=== PATIENT | female | born 1950 | race Caucasian/White ===

== ENCOUNTER 2024-09-05 15:32 | Outpatient (CLI) | payer MEDICARE, OTHER ==
--- NOTE | 2024-09-05 17:15 | RADIOLOGY REPORT ---
MR lumbar spine HISTORY: OTHER LOW BACK PAIN,OTHER FORMS OF SCOLIOSIS, LUMBAR REGION TECHNIQUE: MR was performed with a surface coil at 1.5 T magnet. Sagittal, axial and coronal T1 and T 2-weighted images were obtained. FINDINGS: Loss of height of the T11 and L1 vertebral bodies along the superior endplates with edema i n the vertebral bodies suggesting relatively acute compression fractures. At L1-2 there is a broad-based left paracentral 5 mm disc protrusion effacing the thecal sac At L2-3 there is loss of disc height and signal intensity. There is narrowing of the central canal an d neural foramina by shortened pedicles At L3-4 there is a broad-based 3 mm left paracentral disc protrusion effacing the thecal sac and caus ing narrowing of the left neural foramina At L4-5 there is moderately severe narrowing of the right side of the central canal and right neural foramina by protruding disc, shortened pedicles and facet joint hypertrophy At L5-S1 there is loss of disc height and signal intensity. There is foraminal narrowing due to short ened pedicles and facet joint hypertrophy Cord ends at T12-L1 and is normal in appearance IMPRESSION: 1. Relatively acute compression fractures along the superior T11 and L1 vertebral body endplates with less than 50% loss of vertebral body height 2. Spinal stenosis at multiple levels due to shortened pedicles in conjunction with bulging discs an d facet joint hypertrophy. At L1-2 5 mm left paracentral disc protrusion effaces the thecal sac. At L 3-4 3 mm left paracentral disc protrusion effaces the thecal sac and narrows the left neural foramina . At L4-5 severe narrowing of the right central canal and right neural foramen by protruding disc sh ortened pedicles and facet joint hypertrophy
== END 2024-09-05 23:59 | disposition home or self-care (01) ==
LOC: MRI 15:32
PROVIDERS: ATTEND Physician Assistant
DX: S22.080A Wedge compression fracture of T11-T12 vertebra, initial encounter for closed fracture (principal); M54.59 Other low back pain; S32.010A Wedge compression fracture of first lumbar vertebra, initial encounter for closed fracture; M41.86 Other forms of scoliosis, lumbar region; M47.816 Spondylosis without myelopathy or radiculopathy, lumbar region; M51.16 Intervertebral disc disorders with radiculopathy, lumbar region; M48.061 Spinal stenosis, lumbar region without neurogenic claudication; M85.80 Other specified disorders of bone density and structure, unspecified site; M48.07 Spinal stenosis, lumbosacral region; X58.XXXA Exposure to other specified factors, initial encounter; Y93.89 Activity, other specified; Y92.89 Other specified places as the place of occurrence of the external cause; Y99.8 Other external cause status
CPT/HCPCS: 72148

== ENCOUNTER 2024-09-29 12:37 | Inpatient (IN) | payer MEDICARE, OTHER ==
[~2024-09-29] VITALS: Ht 167.6 cm; Wt 118.2 kg
[2024-09-29 14:58] LABS: BASOPHILS % (AUTO) 0.8 % (0-1); EOSINOPHILS # (AUTO) 0.2 X10'3 (0-0.9); EOSINOPHILS % (AUTO) 3.6 % (0-6); HEMATOCRIT 37.9 % (35.0-45.0); HEMOGLOBIN 12.7 g/dl (12.0-16.0); MEAN CORPUSCULAR HEMOGLOBIN 29.8 PG (27.0-31.0); MEAN CORPUSCULAR HGB CONC 33.5 g/dL (33.0-36.5); MEAN CORPUSCULAR VOLUME 88.9 FL (78-98); MEAN PLATELET VOLUME 8.5 FL (7.4-10.4); MONOCYTES # (AUTO) 0.3 X10'3 (0-0.9); MONOCYTES % (AUTO) 5.6 % (2-12); NEUTROPHILS # (AUTO) 3.5 X10'3 (1.8-7.7); PLATELET COUNT 215 X10'3 (140-440); RED BLOOD COUNT 4.27 X10'6 (4.20-5.60); RED CELL DISTRIBUTION WIDTH 14.7 % (11.5-14.5); WHITE BLOOD COUNT 5.1 X10'3 (4.5-11.0)
[2024-09-29 15:44] LABS: BILIRUBIN,URINE NEGATIVE (Neg); CLARITY,URINE CLEAR (Clear); COLOR,URINE YELLOW (Yellow); GLUCOSE, URINE NEGATIVE (Neg); KETONES,URINE NEGATIVE (Neg); LEUKOCYTE ESTERASE ,URINE NEGATIVE (Neg); NITRITES, URINE NEGATIVE (Neg); OCCULT BLOOD,URINE LARGE (Neg); PROTEIN,URINE NEGATIVE (Neg); UROBILINOGEN,URINE 0.2 E.U/dL (0.2-1.0)
[2024-09-29 15:56] LABS: UA COLLECTION TYPE CLN CATCH MIDSTREAM
[2024-09-29 15:57] LABS: BACTERIA,URINE NONE SEEN /HPF (Neg); SQUAMOUS EPITHELIAL CELL,UR FEW /LPF (FEW); TRANSITIONAL EPI CELLS,URINE FEW /HPF; WBC,URINE 0-4 /HPF (0-4)
[2024-09-29 16:28] LABS: ALANINE AMINOTRANSFERASE 20 U/L (12-78); ALBUMIN 3.8 G/DL (3.4-5.0); ALBUMIN/GLOBULIN RATIO 1.4 (1.1-1.5); ALKALINE PHOSPHATASE 74 IU/L (46-116); ANION GAP 9 (8-16); ASPARTATE AMINO TRANSFERASE 11 U/L (10-37); BILIRUBIN,TOTAL 0.8 MG/DL (0.1-1.0); BLOOD UREA NITROGEN 14 MG/DL (7-18); BUN/CREATININE RATIO 17.7 (10.0-20.0); CALCIUM 8.8 MG/DL (8.5-10.1); CHLORIDE 109 MMOL/L (99-107); CREATININE 0.79 MG/DL (0.40-0.90); GLUCOSE 95 MG/DL (70-104); POTASSIUM 3.6 MMOL/L (3.5-5.1); SODIUM 142 MMOL/L (135-145); TOTAL CARBON DIOXIDE 23.8 MMOL/L (24-32); TOTAL PROTEIN 6.6 G/DL (6.4-8.2); eCRCL 60 ML/MIN; eGFR 72 ML/MIN
[2024-09-29 16:37] LABS: LIPASE 26 U/L (16-77)
--- NOTE | 2024-09-29 17:20 | Physician Documentation ---
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 Has been going on the last few days yesterday she noticed blood in her stools and on her toilet paper. Bright red. She has had no history of similar. No abdominal surgeries. She is not on a blood thinner. She is a nonsmoker no alcohol use. She does report taking for alleve nightly for the last several months due to her headaches Medication Reconciliation Allergies: Coded Allergies: Penicillins (Verified Allergy, Unknown, 09/29/24) >5 years, unknown reaction, unknown treatment, PEN-FAST 3 Miscellaneous Medications Home Med List (No Home Medications), (Reported) Past Medical History Smoking Status: Never smoker Review of Systems All Other Systems at this time: Reviewed and Negative Constitutional: Denies: fever Cardiovascular: Denies: chest pain Gastrointestinal: Reports: abdominal pain, nausea, vomiting Genitourinary: Denies: discharge, dysuria, frequency, flank pain Neurological: Reports: headache; Denies: dizziness, fainting Musculoskeletal: Denies: back pain Allergic/Immunologic: Denies: see HPI Hematologic/Lymphatic: Denies: see HPI, anemia Physical Exam Vital Signs: Temperature: 98.3, Source: Oral, Heart Rate: 64, Respiratory Rate: 21, BP: 139/76, Pulse Oximetry: 98, Weight: 118.180 Oxygen Flow Rate: 0 Physical Exam Nontoxic Extraocular motions intact Clear to auscultation bilaterally No murmurs Abdomen diffuse generalized tenderness no guarding no rebound Skin pink warm well-perfused Awake alert oriented Progress Progress Note Independently interpreted labs, UA noninfected, gross hematuria Hemoglobin normal Normal BUN Normal renal function Consulted hospitalist who agrees with management plan and graciously accept for admission Results/Orders Reviewed/noted all lab results: Yes Results/Orders Orders - NORAH AGRAWAL MD Straight Cath For Urine Sample (09/29/24 13:24) Completed Orders - NORAH AGRAWAL MD Cbc/Diff (09/29/24 13:24) Lipase (09/29/24 13:24) CMP (09/29/24 13:24) Ua W/Microscopic, Cult If Ind (09/29/24 15:26) Vital Signs 09/29/24 09/29/24 09/29/24 09/29/24 12:59 13:06 13:09 15:25 Temp 98.3 98.3 Pulse 66 65 64 Resp 18 18 18 21 B/P (MAP) 132/76 132/76 (94) 139/76 (97) Pulse Ox 94 94 98 O2 Flow Rate 0 Laboratory Tests Test 09/29/24 14:01 09/29/24 15:26 White Blood Count 5.1 Red Blood Count 4.27 Hemoglobin 12.7 Hematocrit 37.9 Mean Corpuscular Volume 88.9 Mean Corpuscular Hemoglobin 29.8 Mean Corpuscular Hemoglobin Concent 33.5 Red Cell Distribution Width 14.7 H Platelet Count 215 Mean Platelet Volume 8.5 Neutrophils (%) (Auto) 70.0 Lymphocytes (%) (Auto) 20.0 L Monocytes (%) (Auto) 5.6 Eosinophils (%) (Auto) 3.6 Basophils (%) (Auto) 0.8 Neutrophils # (Auto) 3.5 Lymphocytes # (Auto) 1.0 L Monocytes # (Auto) 0.3 Eosinophils # (Auto) 0.2 Basophils # (Auto) 0.0 CBC Comment Sodium Level 142 Potassium Level 3.6 Chloride Level 109 H Carbon Dioxide Level 23.8 L Anion Gap 9 Blood Urea Nitrogen 14 Creatinine 0.79 Estimated GFR/1.73 m2 72 BUN/Creatinine Ratio 17.7 Glucose Level 95 Calcium Level 8.8 Total Bilirubin 0.8 Aspartate Amino Transf (AST/SGOT) 11 Alanine Aminotransferase (ALT/SGPT) 20 Alkaline Phosphatase 74 Total Protein 6.6 Albumin 3.8 Globulin 2.8 Albumin/Globulin Ratio 1.4 Lipase 26 Chemistry Comments Urine Specimen Description Cln catch midstream Urine Color Yellow Urine Clarity Clear Urine pH 6.0 Urine Specific Yarnell 1.010 Urine Protein Negative Urine Glucose (UA) Negative Urine Ketones Negative Urine Occult Blood Large H Urine Nitrite Negative Urine Bilirubin Negative Urine Urobilinogen 0.2 Urine Leukocyte Esterase Negative Urine RBC 3-10 Urine WBC 0-4 Urine Squamous Epithelial Cells Few Urine Transitional Epithelial Cells Few Urine Bacteria None seen Urine Culture Indicated Not ind Volume Urine Centrifuged 10 ml Urine Comment EKG/XRAY/CT/US/VASC/MRI CT : Impression CT abdomen independently interpreted shows no dissection Medical Decision Making Findings 6:50 P.M.: CARE OF THE PATIENT WAS TRANSFERRED TO DC FROM DR. AGRAWAL. 8:00 P.M.: CASE DISCUSSED WITH THE HOSPITALIST FOR ADMISSION. SHE WILL ACCEPT THE PATIENT. CTA OF THE ABDOMEN AND PELVIS WAS UNREMARKABLE. Differential Dx:Considerations: Include: AAA, Appendicitis, Bowel obstruction Departure Time of Disposition: 20:11 Disposition: 09 ADMITTED INPATIENT Admitted to Inpatient Unit: to hospitalist Impression: Primary Impression: Abdominal pain Qualified Codes: R10.9 - Unspecified abdominal pain Additional Impression: Hematochezia Condition: Fair Signature Scribe Signature: NO SCRIBE Attestation: NO SCRIBE NORAH AGRAWAL MD September 29, 2024 17:20 JOLIE YANCEY MD September 29, 2024 20:12
[2024-09-29] MEDS ORDERED: iohexol 350MG/ML 100ml bottle IV ONE (17:52)
[2024-09-29] MEDS: morphine 4 MG/ML inj SYRINge IV ONE (19:03)
[2024-09-29] MEDS: ondansetron/PF 4mg/2ml inj IV ONE (19:03)
[2024-09-29] MEDS: ringers solution, lacted 1,000 ML IV ONE (19:04)
[2024-09-29] MEDS: methylPREDNISolone sod succ 125mg/2ml vial IV ONE (19:15)
[2024-09-29] MEDS: diphenhydrAMINE 50 mg/ml inj IV ONE (19:15)
--- NOTE | 2024-09-29 19:23 | RADIOLOGY REPORT ---
EXAM: CT CTA ABDOMEN PELVIS HISTORY: abdominal pain, GI bleeding COMPARISON: None TECHNIQUE: CT angiogram of the abdomen and pelvis. CT scans at this facility use dose modulation, ite rative reconstruction, and/or weight based dosing when appropriate to reduce radiation dose to as low as reasonably achievable. 100 mL of low osmolar contrast was administered without adverse effect. 3- D postprocessing was performed on a separate workstation under radiologist supervision. MIPs were cre ated. VASCULAR FINDINGS: Normal caliber of abdominal aorta without evidence of aortic dissection or aneurysm. The mesenteric, and bilateral renal, iliac and femoral arteries are widely patent without any focal stenosis or aneur ysm NON-VASCULAR FINDINGS: [LUNG BASES]: Trace pericardial effusion. Multiple fluid hypoattenuating macrolobulated structures lo cated in the bilateral hepatic lobes which may represent hepatic cysts versus biliary cystadenomas. [LIVER]: Normal hepatic size without suspicious focal lesion. [GALLBLADDER AND BILIARY TREE]: No cholelithiasis. No biliary dilatation. [SPLEEN]: Unremarkable. [PANCREAS]: Unremarkable. [ADRENAL GLANDS]: Unremarkable [KIDNEYS]: No hydronephrosis. No nephroureterolithiasis. Right renal sinus cysts. [BLADDER]: Unremarkable for the degree distention. [PELVIC ORGANS]: Unremarkable. [BOWEL/MESENTERY]: Small to medium sliding hiatal hernia. No CT evidence of bowel obstruction. Append ix is normal. There is no free air. Sigmoid diverticulosis and descending colonic diverticulosis. [ASCITES]: Absent [LYMPHADENOPATHY]: No pathologically enlarged lymph nodes by CT size criteria [ABDOMINAL WALL]: Small fat containing umbilical hernia [MUSCULOSKELETAL]: Acute to subacute superior endplate compression fracture of L1 and T11 with estima trini 20 percent height loss. No significant retropulsion. Multilevel degenerative change with severe f acet arthropathy. Multifocal degenerative change of the visualized spine. IMPRESSION: 1. No evidence of acute aneurysm, dissection, or intramural hematoma. 2. No evidence of focus of arterial contrast extravasation. 3. Large sliding hiatal hernia, pericardial effusion, diverticulosis, acute to subacute T11 and L1 co mpression fractures.
[2024-09-29] MEDS ORDERED: NO HOME MEDS (20:11)
[2024-09-29] MEDS ORDERED: magnesium sulf-water 4G/100mL 100 ML IV PRN (20:25)
[2024-09-29] MEDS ORDERED: magnesium sulf-water 2g/50mL 50 ML IV PRN (20:25)
[2024-09-29] MEDS ORDERED: potassium Cl 40MEQ/1/2NS 520ml 520 ML IV PRN (20:25)
[2024-09-29] MEDS ORDERED: acetaminophen 325mg tablet PO PRN (20:25)
[2024-09-29] MEDS ORDERED: magnesium hydroxide 30ml (MOM) UD suspension PO PRN (20:25)
[2024-09-29] MEDS ORDERED: morphine 2 MG/ML inj. syringe IV PRN (20:25)
[2024-09-29] MEDS ORDERED: magnesium Cl slow-release 64mg tablet PO PRN (20:25)
[2024-09-29] MEDS ORDERED: potassium Cl 20 mEq SR tablet PO PRN ×2 (20:25)
[2024-09-29] MEDS ORDERED: mag hydrox/Alum hydrox/simeth 30ml oral suspension PO PRN (20:25)
[2024-09-29 20:52] LABS: HEMOGLOBIN A1C 5.6 % (4.5-6.2)
[2024-09-29 21:00] LABS: PRO BRAIN NATRIURETIC PEPTIDE 200 PG/ML (0-125)
[2024-09-29 21:10] LABS: APTT 24 SECONDS (22-32); PROTHROMBIN TIME 10.7 SECONDS (9.0-12.0)
--- NOTE | 2024-09-29 23:21 | HISTORY AND PHYSICAL-Residence ---
History & Physical Providers to CC Resident Creating Document: RACHEL NICOLAS, GAYE ~ History of Present Illness Reason for Admit\Complaint: Rectal bleeding History of Present Illness This is a 73-year-old female with history of right-sided blindness from rejected cornea transplant presented for abdominal pain and blood in stool. She reported that yesterday at about 4:00 p.m. she had sudden onset abdominal pain, located in the epigastric and umbilical region, described the pain as sharp, nonradiating, graded 10/10, not associated with food intake. She also had about three bowel movements with armando blood, not mixed with the stool. Denied any black-colored stools. Also had two episodes of vomiting, not associated with blood. She denied any fevers, also denied eating anything from outside, or any recent travel history. No similar complaints in people living with her. Patient mentioned yesterday before the bowel movement she felt lightheaded, felt like she was about to blackout, did not lose consciousness, did not hit her head. She never had a colonoscopy or FOBT or an endoscopy done. She takes Aleve usually at night for pain in her back. Not on any blood thinners. She has a history of constipation. No family history of colon cancers. About two weeks ago she had a fall and hurt her back, had an MRI done which showed acute compression fracture in T11 and L1 vertebrae, spinal stenosis at multiple levels. Following up with Dr. Osborn. Allergies: Coded Allergies: Penicillins (Verified Allergy, Unknown, 09/29/24) >5 years, unknown reaction, unknown treatment, PEN-FAST 3 Home Medications Home Medications Active Reported No Home Medications (Home Med List) Each Past Medical History Past Medical History Borderline Hypertension not on any antihypertensive medications History of polio as a child History of surgery in the back Past Surgical History Surgical History Comment History of back surgery History of surgery in the right shoulder Family History Family History: FH: type 2 diabetes mellitus MOTHER CHILD Past Social History Social History Comment Denies any history of smoking, alcohol use, drug use Lives with her friend, moved to [place] three years ago after her . 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 ROS Constitutional: Denies: no symptoms reported, see HPI, chills, diaphoresis, fever, malaise, weakness, other Eyes: Denies: no symptoms reported, see HPI, pain, discharge, blurred vision, double vision, itching, photophobia, redness, tearing, other ENT: Denies: no symptoms reported, see HPI, ear pain, ear bleeding, ear discharge, hearing loss, ear ringing, nose pain, nose bleeding, nose congestion, nose discharge, throat pain, throat swelling, voice change, mouth pain, mouth bleeding, mouth swelling, other Respiratory: Denies: no symptoms reported, see HPI, cough, orthopnea, shortness of breath, SOB with exertion, SOB at rest, stridor, wheezing, hemoptysis, pain with breathing, other Cardiovascular: Denies: no symptoms reported, see HPI, chest pain, left arm pain, diaphoresis, lightheadedness, syncope, edema, palpitations, irregular heart rate, other Gastrointestinal: Reports: abdominal pain, vomiting, hematochezia Genitourinary: Denies: no symptoms reported, see HPI, burning, discharge, dysuria, frequency, flank pain, hematuria, incontinence, pain, decreased urine output, urgency, other Neurological: Reports: headache; Denies: no symptoms reported, see HPI, speech problem, dizziness, fainting, tingling, left sided numbness, right sided numbness, left sided weakness, right sided weakness, problems walking, unable to move lower ext, unable to move upper ext, petit mal seizures, tonic-clonic seizures, cognitive dysfunction, other Musculoskeletal: Denies: back pain Allergic/Immunologic: Denies: see HPI Hematologic/Lymphatic: Denies: see HPI, anemia Exam Vitals: Vital Signs Date Time Temp Pulse Resp B/P (MAP) Pulse Ox O2 Delivery O2 Flow Rate FiO2 09/29/24 21:00 58 17 99/77 (84) 99 09/29/24 20:00 2.0 09/29/24 18:50 Nasal Cannula* 28 09/29/24 13:09 98.3 General: General: Alert, oriented, not in distress HEENT: Conjunctive are pink, sclerae clear, no icterus, pupil is equal in both sides. Neck: Supple, no JVD, no lymphadenopathy and thyromegaly. Chest: Equal air entry on both lungs, no adventitious lung sounds Cardiovascular: S1-S2 regular sinus rhythm and, regular rate, no gallops, no rubs, no murmurs Abdomen:. Bowel sounds present on auscultation, soft, diffuse tenderness, no guarding, no rigidity Rectal examination-no hemorrhoids, no blood or stool on the gloves. Extremities: No obvious deformities, no edema bilaterally, capillary refill intact, peripheral pulsations are intact on both sides Central Nervous System: No focal neurological deficits, no motor or sensory weakness in all 4 extremities, could move all 4 extremities. Musculoskeletal: No joint swelling, deformities, inflammations, and no scoliosis and back tenderness Skin: Warm and dry Diagnostic Data Last Recorded Lab Results: 09/29/24 1401 09/29/24 1401 Diagnostic Data: Laboratory Tests Test 09/29/24 20:49 Prothrombin Time 10.7 SECONDS (9.0-12.0) INR International Normalized Ratio 1.0 INR Activated Partial Thromboplast Time 24 SECONDS (22-32) Coagulation Comments Counseling Services Smoking & Tobacco Cessation: 3-10 Minutes (I spent 17 minutes in discussing various resuscitative measures, the patient chose to be DNR) Additional Plan Assessment This is a 73-year-old female came to the ER with a chief complaint of abdominal pain and armando blood from the rectum. Patient is being admitted for for further evaluation of abdominal pain with hematochezia, possibly diverticular bleeding. Plan Abdominal pain with hematochezia Possible diverticular bleeding She is afebrile, Vitals in the normal range Rectal examination did not show hemorrhoids. WBC count, lactic acid in the normal range, procalcitonin ordered Hemoglobin is stable, 12.7 PT, PTT normal CTA abdomen done to rule out any possible ischemic colitis, showed no evidence of aneurysm, dissection, hematoma. Showed large sliding hiatal hernia, diverticulosis Started on NS @ 100 mL/hr Started on Protonix 40 mg IV daily Consult GI in the morning for possible colonoscopy. History of vertebral compression fracture Spinal MRI on 09/05/2024 showed acute compression fraction of T11 and L1 vertebral body, spinal stenosis at multiple levels. Patient is aware of this finding and following up with Dr. Osborn Code state; DNR DVT prophylaxis: SCD GI prophylaxis: Protonix Diet: Regular Line/tubes: Peripheral IV Status: Guarded Rachel Nicolas M.D PGY1 Addendum I personally reviewed the chart, labs and imaging and reviewed the patient with the team. I agree with the assessment and plan as documented by the resident. Patient was seen through remote audio-visual assessment through HIPAA compliance setup. Date of Service: September 29, 2024 Billing Provider: VERONICA NESBITT MD, PRAVAHIKA, RES September 29, 2024 23:21 VERONICA NESBITT MD September 30, 2024 02:22
[2024-09-29] MEDS: normal saline 1000ml 1,000 ML IV SCH (23:40)
[2024-09-30 02:31] LABS: BASOPHILS % (AUTO) 0.2 % (0-1); EOSINOPHILS % (AUTO) 0.2 % (0-6); HEMOGLOBIN 12.4 g/dl (12.0-16.0); LYMPHOCYTES # (AUTO) 0.6 X10'3 (1.1-4.8); LYMPHOCYTES % (AUTO) 14.8 % (21-51); MEAN CORPUSCULAR HEMOGLOBIN 29.5 PG (27.0-31.0); MEAN CORPUSCULAR HGB CONC 32.8 g/dL (33.0-36.5); MEAN PLATELET VOLUME 8.5 FL (7.4-10.4); MONOCYTES % (AUTO) 0.9 % (2-12); NEUTROPHILS # (AUTO) 3.5 X10'3 (1.8-7.7); NEUTROPHILS % (AUTO) 83.9 % (42-75); PLATELET COUNT 212 X10'3 (140-440); RED BLOOD COUNT 4.22 X10'6 (4.20-5.60); RED CELL DISTRIBUTION WIDTH 14.5 % (11.5-14.5); WHITE BLOOD COUNT 4.1 X10'3 (4.5-11.0)
[2024-09-30 02:47] LABS: ALBUMIN 3.5 G/DL (3.4-5.0); ANION GAP 8 (8-16); BLOOD UREA NITROGEN 14 MG/DL (7-18); BUN/CREATININE RATIO 16.9 (10.0-20.0); CALCIUM 8.8 MG/DL (8.5-10.1); CHLORIDE 110 MMOL/L (99-107); CHOL/HDL RATIO 4.5 (0.00-4.99); CHOLESTEROL 259 MG/DL (0-200); CREATININE 0.83 MG/DL (0.40-0.90); GLUCOSE 137 MG/DL (70-104); HDL CHOLESTEROL 57 MG/DL (35-60); LDL CHOLESTEROL 183 MG/DL (50-100); MAGNESIUM 2.1 MG/DL (1.5-2.4); POTASSIUM 3.9 MMOL/L (3.5-5.1); SODIUM 142 MMOL/L (135-145); TOTAL CARBON DIOXIDE 23.7 MMOL/L (24-32); TRIGLYCERIDES 52 MG/DL (20-135); eCRCL 57 ML/MIN; eGFR 68 ML/MIN
[2024-09-30] MEDS: K and/or MAG REPLACEMENT MC SCH (08:00)
--- NOTE | 2024-09-30 08:25 | ELECTROCARDIOGRAPH REPORT ---
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 Gaston Stauffer Measurements Intervals [place] Rate: 71 P: 43 [place]: 166 QRS: 74 QRSD: 90 T: 27 QT: 407 QTc: 443 Interpretive Statements Sinus rhythm Ventricular premature complex Minimal ST elevation, inferior leads Baseline wander in lead(s) II,aVF,V3 Electronically Signed On 10-01-2024 11:01:[address] Gaston Stauffer Please click the below link to view image of tracing.
[2024-09-30] MEDS: docusate sod 100mg capsule PO SCH (09:10)
[2024-09-30] MEDS: pantoprazole 40 MG vial IV SCH (09:10)
[2024-09-30 10:31] LABS: HEMATOCRIT 36.9 % (35.0-45.0); HEMOGLOBIN 12.3 g/dl (12.0-16.0); MEAN CORPUSCULAR HEMOGLOBIN 29.7 PG (27.0-31.0); MEAN CORPUSCULAR HGB CONC 33.4 g/dL (33.0-36.5); MEAN CORPUSCULAR VOLUME 88.9 FL (78-98); MEAN PLATELET VOLUME 8.5 FL (7.4-10.4); PLATELET COUNT 224 X10'3 (140-440); RED BLOOD COUNT 4.15 X10'6 (4.20-5.60); WHITE BLOOD COUNT 4.9 X10'3 (4.5-11.0)
[2024-09-30 11:30] VITALS: BP 117/68; PULSE 73; RESP 16; TEMP 97.9; O2SAT 95
[2024-09-30] MEDS: morphine 2 MG/ML inj. syringe IV PRN (13:07)
--- NOTE | 2024-09-30 14:39 | PROGRESS NOTE ---
Daily Progress Note Providers to CC ~ Antibiotic Timeout Antibiotic Ordered?: No Subjective No acute events overnight. Patient examined at bedside. No new complaints, not in acute distress. Patient denies chest pain, sob, palpitations, n/v/d. Abdominal pain manageable. Vss, labs unremarkable. Consulted GI Dr. Moran, patient is to start bowel prep for colonoscopy tomorrow. 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 Patient is being admitted for for further evaluation of abdominal pain with hematochezia, possibly diverticular bleeding. # LGIB -reports hematochezia x 3, 2 days ago -CT abd/pelvis showed large sliding hiatal hernia, diverticulosis -09/30: consulted GI Dr. oMran, patient is to start bowel prep for colonoscopy tomorrow # History of vertebral compression fracture -Spinal MRI on 09/05/2024 showed acute compression fraction of T11 and L1 vertebral body, spinal stenosis at multiple levels. -Patient is aware of this finding and following up with Dr. Osborn # Class III obesity Code state: DNR DVT/VTE prophylaxis: SCDs GI prophylaxis: Protonix Date of Service: September 30, 2024 Billing Provider: CHAVO RUSSELL Common Visit Codes: [id number] INP/OBS CARE(HIGH) CHAVO RUSSELL September 30, 2024 14:39
[2024-09-30] MEDS: PEG 3350/Na sulf,bicarb,Cl/KCl oral sol 4 liter bottle PO ONE (15:34)
[2024-09-30 17:28] VITALS: BP 149/86; PULSE 68; RESP 20; TEMP 96.7; O2SAT 97
[2024-09-30 18:00] VITALS: BP 138/84; PULSE 58; RESP 20; TEMP 98.2; O2SAT 95
--- NOTE | 2024-09-30 18:34 | CONSULTATION REPORT - RESIDENT ---
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 Symptoms began suddenly yesterday with sharp, nonradiating pain localized to the epigastric and umbilical regions, rated 10/10, and unrelated to food intake. She had three episodes of armando blood in her stool (not mixed with stool) and denied melena. Associated symptoms included lightheadedness and two episodes of non-bloody vomiting. The patient denies fever, recent dietary changes, or travel history. She has no prior history of gastrointestinal evaluations, including colonoscopy, FOBT, or endoscopy. Medications include occasional Aleve for back pain. She has a history of constipation and no family history of colorectal cancer. Imaging two weeks ago revealed T11 and L1 vertebral compression fractures after a fall. Currently does not have a primary care provider Allergies: Coded Allergies: Penicillins (Verified Allergy, Unknown, 09/29/24) >5 years, unknown reaction, unknown treatment, PEN-FAST 3 Home Medications Home Medications Active Reported No Home Medications (Home Med List) Each Past Medical History Past Medical History Borderline Hypertension ( not on any antihypertensive medications) Childhood polio Vertebral compression fracture Past Surgical History Surgical History Comment Right shoulder and lower back surgery Family History Family History: FH: type 2 diabetes mellitus MOTHER CHILD Past Social History Social History Comment Denies smoking, alcohol or illicit use of drugs Lives with her friend, moved to [place] three years ago after her . 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 All negative except for pertinent positive HPI. Exam Vitals: Vital Signs Date Time Temp Pulse Resp B/P (MAP) Pulse Ox O2 Delivery O2 Flow Rate FiO2 09/30/24 17:28 96.7 68 20 149/86 (107) 97 Room Air 09/30/24 06:30 0 09/29/24 18:50 28 General: Awake , alert, and oriented x4, resting comfortably in the bed, in no acute distress HEENT: Atraumatic, normocephalic, EOMI, anicteric sclera ; pink conjunctiva Neck: Trachea midline. Supple, full range of motion, no JVD Cardiac: Regular rhythm, regular rate with no murmurs all over the precordium. Respiratory: Equal breath sounds bilaterally, no tachypnea, no wheezing ,rub or rales, Chest wall is symmetric and without deformity. Gastrointestinal: Abdomen symmetric, non-distended, soft, non-tender, normal bowel sounds x4 quadrant, normoactive, no hepatosplenomegaly Rectal examination- No hemorrhoids Musculoskeletal: No pedal edema, no cyanosis Neurological: Speech is clear, alert, and oriented x 4. No motor or sensory deficit, deep tendon reflexes normal, cerebellar intact. Cranial nerves II-XII intact. Skin: Warm and dry Diagnostic Data Last Recorded Lab Results: 09/30/24 1006 09/30/24 0209 Diagnostic Data: Laboratory Tests Test 09/29/24 20:49 Prothrombin Time 10.7 SECONDS (9.0-12.0) INR International Normalized Ratio 1.0 INR Activated Partial Thromboplast Time 24 SECONDS (22-32) Coagulation Comments Additional Plan Vitals: Stable, afebrile Physical Exam: Rectal exam negative for hemorrhoids Labs: Hemoglobin: Stable at 12.7 g/dL WBC count, lactic acid: Within normal limits PT, PTT: Normal Procalcitonin: Normal Imaging: CTA abdomen: No evidence of aneurysm, dissection, hematoma, or ischemic colitis. Findings include large sliding hiatal hernia and diverticulosis. Assessment & Plan: 1.hematochezia: Likely due to diverticular bleeding based on the typical presentation of sudden painless rectal bleeding. imaging study , CT scan showed divericulosis. Other causes may include a bleeding polyp, colon cancer although less likely Less likely ischemic colitis given the fact she did not have pain associated with hematochezia confirmed with negative CTA abdomen. Typically patients have bloody mucoid stool with pain in ischemic colitis. Plan: Continue Protonix 40 mg IV daily. Maintain IV hydration with normal saline at 100 mL/hr. Monitor hemoglobin for ongoing bleeding. Plan for colonoscopy and endoscopy to further evaluate the source of bleeding tomorrow. NPO after midnight Bowel preparation with GoLYTELY tonight 2. Large sliding hiatal hernia: Incidental finding. No acute intervention required unless symptomatic. Will await EGD findings 3. History of vertebral compression fractures: Follow-up with Dr. Osborn patient Ensure adequate pain control. Diagnostics: Continue monitoring labs, including WBC count, lactic acid, and procalcitonin (pending). GI consultation recommendations: Proceed with colonoscopy and endoscopy tomorrow for diagnostic evaluation of hematochezia. Impression: The patients presentation is most consistent with diverticular bleeding with the absence of hemodynamic instability or evidence of ischemia. Colonoscopy is warranted to confirm the diagnosis and guide further management. Code Status: DNR DVT Prophylaxis: SCDs, avoid anticoagulation GI Prophylaxis: Protonix Nutrition: Clear liquid diet Disposition: Colonoscopy and endoscopy tomorrow in a.m. Jesse Snider MD Internal Medicine Resident, PGY-1 Date of Service: September 30, 2024 Billing Provider: JEANNINE SELF MD, GAURAV, RES September 30, 2024 18:34 JEANNINE SELF MD October 01, 2024 11:42
[2024-09-30] MEDS ORDERED: hydrALAZINE 20mg/ml inj. IV PRN (18:50)
[2024-09-30] MEDS: ondansetron/PF 4mg/2ml inj IV PRN (19:43)
[2024-09-30 20:00] VITALS: RESP 18; O2SAT 98
[2024-09-30 22:00] VITALS: BP 131/56; PULSE 63; RESP 18; TEMP 97.9; O2SAT 97
[2024-09-30 23:58] VITALS: RESP 18; O2SAT 98
[2024-09-30] MEDS ORDERED: IBUP-1985 PO (23:58)
[2024-10-01] VITALS (14 sets, daily range): BP systolic 113–161; BP diastolic 50–82; PULSE 65–91; RESP 12–20; TEMP 97.8–98.6; O2SAT 92–100
[2024-10-01] MEDS: PEG 3350/Na sulf,bicarb,Cl/KCl oral sol 4 liter bottle PO ONE (06:00)
[2024-10-01 06:06] LABS: ANION GAP 7 (8-16); BASOPHILS % (AUTO) 0.6 % (0-1); BLOOD UREA NITROGEN 14 MG/DL (7-18); BUN/CREATININE RATIO 14.7 (10.0-20.0); CALCIUM 8.4 MG/DL (8.5-10.1); CHLORIDE 113 MMOL/L (99-107); CREATININE 0.95 MG/DL (0.40-0.90); EOSINOPHILS # (AUTO) 0.1 X10'3 (0-0.9); EOSINOPHILS % (AUTO) 0.8 % (0-6); GLUCOSE 92 MG/DL (70-104); HEMATOCRIT 31.3 % (35.0-45.0); HEMOGLOBIN 10.6 g/dl (12.0-16.0); LYMPHOCYTES # (AUTO) 1.9 X10'3 (1.1-4.8); LYMPHOCYTES % (AUTO) 30.2 % (21-51); MEAN CORPUSCULAR HEMOGLOBIN 30.3 PG (27.0-31.0); MEAN CORPUSCULAR HGB CONC 33.9 g/dL (33.0-36.5); MEAN CORPUSCULAR VOLUME 89.3 FL (78-98); MEAN PLATELET VOLUME 8.4 FL (7.4-10.4); MONOCYTES # (AUTO) 0.3 X10'3 (0-0.9); MONOCYTES % (AUTO) 5.4 % (2-12); NEUTROPHILS # (AUTO) 3.9 X10'3 (1.8-7.7); PLATELET COUNT 182 X10'3 (140-440); POTASSIUM 3.6 MMOL/L (3.5-5.1); RED CELL DISTRIBUTION WIDTH 14.8 % (11.5-14.5); SODIUM 146 MMOL/L (135-145); WHITE BLOOD COUNT 6.2 X10'3 (4.5-11.0); eCRCL 50 ML/MIN; eGFR 58 ML/MIN
[2024-10-01] MEDS ORDERED: LIDOcaine 2% Viscous 15ml cup ONE (09:04)
[2024-10-01] MEDS ORDERED: fentaNYL/PF 50MCG/1 ML 2ML syringe ONE (10:43)
[2024-10-01] MEDS ORDERED: MIDAZolam 1 MG/ML 5ML VIAL ONE (10:44)
--- NOTE | 2024-10-01 13:25 | PROGRESS NOTE- Residence ---
Progress Note - Resident Providers to CC Resident Creating Document: ELENABENROSA JacobsBROGAYE ~ Antibiotic Timeout Antibiotic Ordered?: No Subjective Post Procedural EGD Note: Procedure: Upper Endoscopy (Esophagogastroduodenoscopy - EGD) Indications: Evaluation of suspected upper GI bleed and anemia. Findings: Esophagus: Normal appearance without evidence of erosions, ulcers, or varices. Stomach: A medium-sized hiatal hernia was noted. Localized mild mucosal changes in the gastric antrum and pre-pyloric region characterized by congestion. No evidence of active bleeding, ulcers, or masses. Biopsies were taken from the antrum for histopathological evaluation. Duodenum: Duodenal bulb and second portion were normal without evidence of erosions, ulcers, or other abnormalities. Interventions: Biopsies were obtained from the gastric antrum. No therapeutic intervention was required during the procedure. Complications: None. Recommendations: Return patient to hospital [facility] for monitoring. Resume diet as tolerated. Continue current medications, including proton pump inhibitors. Await pathology results of gastric antral biopsies to guide further management. Plan: Follow up on pathology results and correlate findings with clinical presentation to determine the cause of mucosal changes. Reinforce the importance of avoiding potential triggers (e.g., NSAIDs, alcohol). - Post-Procedure Colonoscopy Note Procedure: Colonoscopy Indications: Evaluation of anemia and suspected lower GI bleed. Findings: Perianal and Digital Rectal Exam (JACKSON): Normal without evidence of masses, fissures, or bleeding. Rectum: Normal mucosa without evidence of inflammation or lesions. Sigmoid Colon: Multiple diverticula were noted, consistent with diverticulosis. No evidence of active bleeding or inflammation. Hemorrhoids: Non-bleeding internal hemorrhoids were identified. Remaining Colon: Normal mucosa from descending colon to cecum without evidence of masses, polyps, or other abnormalities. Terminal Ileum: Normal appearance. Interventions: No therapeutic interventions were required during the procedure. Complications: None. Recommendations: Return patient to hospital [facility] for monitoring. Resume diet as tolerated. Continue current medications as prescribed. Educate the patient on the benign nature of diverticulosis and hemorrhoids. Emphasize a high-fiber diet and adequate hydration to prevent complications like diverticulitis or hemorrhoidal bleeding. Plan: No immediate concerns based on current findings. Consider routine follow-up as needed, or earlier evaluation if symptoms of bleeding recur. Procedure performed by: Dr. Self Date: 10/01/24 Objective Vital Signs Date Time Temp Pulse Resp B/P (MAP) Pulse Ox O2 Delivery O2 Flow Rate FiO2 10/01/24 11:55 66 13 115/50 92 Room Air 0.0 10/01/24 10:00 98.6 09/29/24 18:50 28 Result Diagram: 10/01/24 0500 10/01/24 0500 Coagulation Studies Laboratory Tests Test 09/29/24 20:49 Prothrombin Time 10.7 SECONDS (9.0-12.0) INR International Normalized Ratio 1.0 INR Activated Partial Thromboplast Time 24 SECONDS (22-32) Coagulation Comments Date of Service: October 01, 2024 Billing Provider: JEANNINE SELF MD, GAURAV, RES October 01, 2024 13:25
[2024-10-01 14:52] LABS: HEMATOCRIT 35.2 % (35.0-45.0); HEMOGLOBIN 11.7 g/dl (12.0-16.0); MEAN CORPUSCULAR HEMOGLOBIN 30.1 PG (27.0-31.0); MEAN CORPUSCULAR HGB CONC 33.3 g/dL (33.0-36.5); MEAN CORPUSCULAR VOLUME 90.2 FL (78-98); MEAN PLATELET VOLUME 8.1 FL (7.4-10.4); PLATELET COUNT 184 X10'3 (140-440); RED CELL DISTRIBUTION WIDTH 14.5 % (11.5-14.5); WHITE BLOOD COUNT 5.2 X10'3 (4.5-11.0)
--- NOTE | 2024-10-01 15:27 | DISCHARGE SUMMARY ---
Discharge Summary Providers to CC ~ Discharge Summary Admission Diagnosis: lower GI bleed Hospital Course DATE OF ADMISSION: 09/29/24 DATE OF DISCHARGE: 10/01/24 Discharge Diagnosis\\Comment: LGIB likely hemorrhoid bleeding History of vertebral compression fracture Class III obesity Operations\\Procedures: Colonoscopy Consultants: GI Ronal Ferrari Complications: None Condition on DC: Stable Continued Medications: Home Med List (No Home Medications) Each Discontinued Medications: Ibuprofen (Ibuprofen) 600 Mg Tablet 1 TAB PO TID Discharge Summary: History of Present Illness From H&P: "This is a 73-year-old female with history of right-sided blindness from rejected cornea transplant presented for abdominal pain and blood in stool. She reported that yesterday at about 4:00 p.m. she had sudden onset abdominal pain, located in the epigastric and umbilical region, described the pain as sharp, nonradiating, graded 10/10, not associated with food intake. She also had about three bowel movements with armando blood, not mixed with the stool. Denied any black-colored stools. Also had two episodes of vomiting, not associated with blood. She denied any fevers, also denied eating anything from outside, or any recent travel history. No similar complaints in people living with her. Patient mentioned yesterday before the bowel movement she felt lightheaded, felt like she was about to blackout, did not lose consciousness, did not hit her head. She never had a colonoscopy or FOBT or an endoscopy done. She takes Aleve usually at night for pain in her back. Not on any blood thinners. She has a history of constipation. No family history of colon cancers. About two weeks ago she had a fall and hurt her back, had an MRI done which showed acute compression fracture in T11 and L1 vertebrae, spinal stenosis at multiple levels. Following up with Dr. Osborn." Hospital Course Initial diagnostic findings for unremarkable including stable hemogram and CTA abdomen/pelvis. Patient was started on intravenous fluids and PPI on admission. Case was consulted with GI Dr. Moran and patient underwent colonoscopy after a bowel prep on 10/01/24 with findings notable for non-bleeding internal hemorrhoids and moderate diverticulosis in the sigmoid colon without evidence of diverticular bleeding, perforation, or abscess. No biopsies taken. Patient did not experience further complications throughout the entire hospital stay and made a good recovery. Patient was seen and examined on the day of discharge. She denies abdominal pain or lightheadedness. On day of discharge, vss and labs unremarkable. H/H remained stable. All labs, diagnostic workups, discharge plan discussed with patient in details during visit before discharge. All questions and concerns answered to the best of my professional knowledge. Patient is recommended of high-fiber diet and hydration. Patient is to be discharged to home to self and to follow-up with PCP within 2 weeks. Physical Exam General: A&Ox 3, NAD HEENT: Normocephalic, PERRLA Neck: Supple, trachea midline, no JVD Chest: Clear to auscultation bilaterally Cardiovascular: RRR, S1&S2 GI: Mild tenderness lower quadrants of abdomen; negative rebound tenderness Extremities: No cyanosis/clubbing/or edema TOP ICER: CN II-XII intact, no focal deficits Musculoskeletal: No paraspinal muscle tenderness, no muscle spasm Skin: Warm and intact *Problems/Diagnosis: (1) Hematochezia Status: Acute Total Time Spent on D/C: > 30 Minutes Date of Service: October 01, 2024 Billing Provider: CHAVO RUSSELL Common Visit Codes: 15795-TKD/OBS DISCH DAY >30min CHAVO RUSSELL October 01, 2024 15:25
--- NOTE | 2024-10-04 13:34 | PATHOLOGY REPORT ---
[facility] [address] [place] [address] SURGICAL PATHOLOGY REPORT CaseNumber: [id number] Surgeon:Ronal Moran M.D. CLINICAL INFORMATION CLINICAL INFORMATION: Epigastric abdominal pain and functional dyspepsia. DIAGNOSIS DIAGNOSIS: STOMACH, ANTRUM; BIOPSY - MINIMAL ACTIVE CHRONIC GASTRITIS. - IMMUNOHISTOCHEMICAL STAIN NEGATIVE FOR HELICOBACTER PYLORI. MICROSCOPIC DESCRIPTION MICROSCOPIC DESCRIPTION: Microscopic examination is performed on one H&E stained slide. Present is ga stric antral mucosa with minimal chronic inflammation consisting of lymphocytes and plasma cells with in the lamina propria and focal minimal acute inflammation extending from the lamina propria into the epithelium. There is no evidence of ulcer, intestinal metaplasia, dysplasia, or malignancy. An immun ohistochemical stain for Helicobacter pylori is completed and is negative. (st) GROSS DESCRIPTION GROSS DESCRIPTION: Received in a container of formalin labeled with the patient's name, number, and " antrum" is a 0.4 x 0.2 x 0.2 cm piece of limon tissue. The specimen is entirely submitted as A1. The ti me at which the specimen was removed was 1055. The time at which the specimen was placed in formalin was 1056. Electronically signed by: Shivam Madera D.O. 10/04/2024 12:52:00 PM
== END 2024-10-01 18:50 | disposition home or self-care (01) | DRG 394 ==
LOC: ER 12:37 → ED HOLD 20:34 → SUR 3N 09-30 11:27
PROVIDERS: ADMIT Internal Medicine Sleep Medicine; ATTEND Nurse Practitioner Family
PROC: B4201ZZ Computerized Tomography (CT Scan) of Abdominal Aorta using Low Osmolar Contrast (ICD-10-PCS; 2024-09-29)
PROC: B4281ZZ Computerized Tomography (CT Scan) of Bilateral Renal Arteries using Low Osmolar Contrast (ICD-10-PCS; 2024-09-29)
PROC: B42C1ZZ Computerized Tomography (CT Scan) of Pelvic Arteries using Low Osmolar Contrast (ICD-10-PCS; 2024-09-29)
PROC: B42H1ZZ Computerized Tomography (CT Scan) of Bilateral Lower Extremity Arteries using Low Osmolar Contrast (ICD-10-PCS; 2024-09-29)
PROC: B4211ZZ Computerized Tomography (CT Scan) of Celiac Artery using Low Osmolar Contrast (ICD-10-PCS; 2024-09-29)
PROC: 0DB78ZX Excision of Stomach, Pylorus, Via Natural or Artificial Opening Endoscopic, Diagnostic (ICD-10-PCS; principal; 2024-10-01)
PROC: 0DJD8ZZ Inspection of Lower Intestinal Tract, Via Natural or Artificial Opening Endoscopic (ICD-10-PCS; 2024-10-01)
DX: K64.8 Other hemorrhoids (principal); Z68.41 Body mass index [BMI] 40.0-44.9, adult; H54.61 Unqualified visual loss, right eye, normal vision left eye; K44.9 Diaphragmatic hernia without obstruction or gangrene; K57.30 Diverticulosis of large intestine without perforation or abscess without bleeding; Z66 Do not resuscitate; E66.813 Obesity, class 3; K59.00 Constipation, unspecified; Z79.899 Other long term (current) drug therapy; Z88.0 Allergy status to penicillin
CPT/HCPCS: 36415; 43239; 45378; 74174; 80048; 80053; 80061; 81001; 82948; 83036; 83605; 83690; 83735; 83880; 84145; 85025; 85027; 85610; 85730; 87081; 88305; 88342; 93005; 96361; 96374; 96375; 97110; 97116; 97162; 99152; 99153; 99285; A4615; A4620; G0378; J1200; J2250; J2270; J2405; J2470; J2919; J3010; J7030; J7040; J7120; Q9967